=== PATIENT | male | born 1965 | race Caucasian/White ===

== ENCOUNTER 2023-11-04 13:13 | Emergency (ER) | payer OTHER ==
[2023-11-04] MEDS ORDERED: Doxycycline 100 MG CAP ONE (13:35)
[2023-11-04] MEDS ORDERED: Cephalexin 250 MG CAP ONE (13:35)
== END 2023-11-04 13:40 | disposition home or self-care (01) ==
LOC: BURERS 13:13
DX: S00.431A Contusion of right ear, initial encounter (principal); S00.411A Abrasion of right ear, initial encounter; I25.10 Atherosclerotic heart disease of native coronary artery without angina pectoris; J44.9 Chronic obstructive pulmonary disease, unspecified; I13.0 Hypertensive heart and chronic kidney disease with heart failure and stage 1 through stage 4 chronic kidney disease, or unspecified chronic kidney disease; E11.22 Type 2 diabetes mellitus with diabetic chronic kidney disease; N18.9 Chronic kidney disease, unspecified; I50.9 Heart failure, unspecified; F17.210 Nicotine dependence, cigarettes, uncomplicated; X58.XXXA Exposure to other specified factors, initial encounter
CPT/HCPCS: 99282